=== PATIENT | female | born 1970 | race American Indian/Alaskan Native ===

== ENCOUNTER 2018-10-12 09:39 | Emergency (ER) | payer OTHER ==
[2018-10-12] MEDS ORDERED: NA CHLORIDE 0.9% 1,000 ML ONE (10:32)
[2018-10-12 10:38] LABS: Absolute Lymphocytes (CBC) 1.1 K/uL (0.7-4.9); Absolute Monocytes 0.4 K/uL (0.1-1.3); Absolute Neutrophil 4.5 K/uL (1.8-8.0); Basophils % 0.6 % (0-1.3); Eosinophils % 1.1 % (0-4.4); Hematocrit 37.9 % (36.0-45.0); Lymphocytes % 17.7 % (15.3-44.8); MPV 8.8 fL (7.6-11.3); Monocytes % 7.1 % (3.3-12.3); RBC Red Blood Cell Count 4.14 M/uL (3.86-4.86)
--- NOTE | 2018-10-12 10:55 | RAD REPORT ---
EXAM DESCRIPTION: CT - Head Brain Wo Cont - 10/12/2018 10:40 am CLINICAL HISTORY: Mental status change;Numbness Headache, drowsiness COMPARISON: No comparisons TECHNIQUE: All CT scans are performed using dose optimization technique as appropriate and may inclu de automated exposure control or mA/KV adjustment according to patient size. FINDINGS: No intracranial hemorrhage, hydrocephalus or extra-axial fluid collection.No areas of brai n edema or evidence of midline shift. The paranasal sinuses and mastoids are clear. The calvarium is intact. IMPRESSION: No acute intracranial abnormality.
--- NOTE | 2018-10-12 11:03 | RAD REPORT ---
EXAM DESCRIPTION: Edna Single View10/12/2018 10:56 am CLINICAL HISTORY: Palpitations COMPARISON: none FINDINGS: The lungs appear clear of acute infiltrate. The heart is normal size IMPRESSION: No acute abnormalities displayed
[2018-10-12 11:28] LABS: BUN Blood Urea Nitrogen 12 mg/dL (7-18); Bicarbonate 23 mmol/L (21-32); Creatine Phosphokinase 246 U/L (26-192); Glucose Level 196 mg/dL (74-106); Magnesium 2.1 mg/dL (1.8-2.4); Potassium 3.4 mmol/L (3.5-5.1); Sodium Level 138 mmol/L (136-145); Thyroid Stimulating Hormone 0.716 uIU/mL (0.360-3.740); Troponin (Emerg Dept Use Only) < 0.02 ng/mL (0.0-0.045)
[2018-10-12 11:30] LABS: Calcium Oxalate Crystals- Ur FEW (NONE SEEN); Urine Bacteria <20 /HPF (<20); Urine Culture Reflex Order REFLEXED; Urine Mucus 1+ /HPF (NONE SEEN); Urine RBC TNTC /HPF (NONE SEEN)
[2018-10-12 13:11] LABS: Urine Blood 3+ (NEG); Urine Glucose NEGATIVE (NEG); Urine Protein 1+ (NEG); Urine Specific Gravity 1.025 (1.005-1.030); Urine pH 5.5 (5.0-7.0)
[2018-10-12] MEDS ORDERED: LORazepam 2 MG/ML VIAL ONE (13:15)
--- NOTE | 2018-10-12 16:06 | ER ---
Nurse's Notes [facility] [place] Name: Hallie Anderson Age: 48 yrs Sex: Female : 1970 Arrival Date: 10/12/2018 Time: 09:39 Bed Treatment Private MD: Nina Barillas C Diagnosis: Sleep deprivation;Dehydration Presentation: 10/12 09:58 Presenting complaint: Patient states: Past couple days haven't been able to sleep, feel jl7 tingly all over. Denies pain, N/V/D. Transition of care: patient was not received from another setting of care. Onset of symptoms was October 10, 2018. Risk Assessment: Do you want to hurt yourself or someone else? Patient reports no desire to harm self or others. Initial Sepsis Screen: Does the patient meet any 2 criteria? HR > 90 bpm. No. Patient's initial sepsis screen is negative. Does the patient have a suspected source of infection? No. Patient's initial sepsis screen is negative. Care prior to arrival: None. 09:58 Method Of Arrival: Ambulatory [facility] 09:58 Acuity: SRIDHAR 3 jl7 Triage Assessment: 10:01 General: Appears in no apparent distress. uncomfortable, Behavior is cooperative, jl7 drowsy. Pain: Denies pain. EENT: No deficits noted. Neuro: Level of Consciousness is awake, alert, obeys commands, Oriented to person, place, time, situation, Moves all extremities. Full function Gait is steady, Speech is normal. Cardiovascular: Patient's skin is warm and dry. Respiratory: Airway is patent Respiratory effort is even, unlabored, Respiratory pattern is regular, symmetrical. GI: No signs and/or symptoms were reported involving the gastrointestinal system. Patient currently denies diarrhea, nausea, vomiting. : No signs and/or symptoms were reported regarding the genitourinary system. Derm: Skin is pink, warm \\T\\ dry. Musculoskeletal: No signs and/or symptoms reported regarding the musculoskeletal system. 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 - Social history:: Smoking status: Patient/guardian denies using tobacco. - Ebola Screening: : No symptoms or risks identified at this time. - Family history:: not pertinent. - Hospitalizations: : No recent hospitalization is reported. Screenin:49 Abuse screen: Denies threats or abuse. Denies injuries from another. Nutritional jl7 screening: No deficits noted. Tuberculosis screening: No symptoms or risk factors identified. Fall Risk IV access (20 points). Total Adler Fall Scale indicates No Risk (0-24 pts). Assessment: 10:03 General: See triage assessment. jl7 11:14 Reassessment: Patient and/or family updated on plan of care and expected duration. Pain pc1 level reassessed. pt is laying in supine position with eyes closed, breathing without signs of distress. 12:03 Reassessment: Pt laying in bed with eyes closed, respirations even and unlabored, no jl7 signs of distress noted at this time. Pt's friends went to the cafeteria and will return. 12:10 Reassessment: Pt reports decreased tingling on body after medication. jl7 13:33 Reassessment: Pt states "The medication helped a little but my mind is racing.". jl7 14:30 Reassessment: Patient appears in no apparent distress at this time. Patient and/or jl7 family updated on plan of care and expected duration. Pain level reassessed. Patient states feeling better. Patient states symptoms have improved. 16:01 Reassessment: Pt laying in bed with eyes closed, respirations even and unlabored, no jl7 signs of distress noted at this time. Pt's friend at bedside reports she is asleep. 16:58 Reassessment: Pt placed in treatment room awaiting to pick her up. jl7 Vital Signs: 10:01 BP 141 / 86; Pulse 106; Resp 19 S; Temp 99.2(O); Pulse Ox 100% on R/A; Weight 68.04 kg jl7 (R); Height 5 ft. 5 in. (165.10 cm) (R); Pain 0/10; 11:16 BP 132 / 78; Pulse 87; Resp 17; Pulse Ox 100% on R/A; pc1 12:03 BP 121 / 83; Pulse 78; Resp 16 S; Pulse Ox 100% on R/A; jl7 13:33 BP 116 / 87; Pulse 68; Resp 16 S; Pulse Ox 100% on R/A; jl7 14:47 BP 127 / 69; Pulse 81; Resp 14 S; Pulse Ox 100% on R/A; jl7 16:01 BP 111 / 73; Pulse 64; Resp 14 S; Pulse Ox 100% on R/A; jl7 10:01 Body Mass Index 24.96 (68.04 kg, 165.10 cm) jl7 ED Course: 09:39 Patient arrived in ED. mr 09:40 Nina Barillas MD is Private Physician. mr 09:47 Delvis Hamilton MD is Attending Physician. rn 09:48 Christina Jhaveri RN is Primary Nurse. jl7 09:59 Triage completed. jl7 10:01 Arm band placed on right wrist. jl7 10:05 Patient has correct armband on for positive identification. Placed in gown. Bed in low jl7 position. Call light in reach. Side rails up X 1. conveyor monitor on. Pulse ox on. NIBP on. Warm blanket given. 10:09 Inserted saline lock: 20 gauge in right antecubital area, using aseptic technique. pc1 10:41 CT Head Brain wo Cont In Process Unspecified. EDMS 10:50 Initial lab(s) drawn, by ri, sent to lab. Urine collected: clean catch specimen, jl7 cloudy, jessica colored. 10:56 XRAY Chest (1 view) In Process Unspecified. EDMS 12:11 Assisted to bathroom. jl7 16:05 Nina Barillas MD is Referral Physician. rn 16:58 No provider procedures requiring assistance completed. IV discontinued, intact, jl7 bleeding controlled, No redness/swelling at site. Pressure dressing applied. Administered Medications: 10:37 Drug: NS 0.9% 1000 ml Route: IV; Rate: 1000 ml; Site: right antecubital; jl7 12:05 Follow up: Response: No adverse reaction; IV Status: Completed infusion; IV Intake: jl7 1000ml 11:36 Drug: Valium 2 mg Route: PO; jl7 12:15 Follow up: Response: No adverse reaction; Marked relief of symptoms jl7 13:11 Drug: Ativan 0.5 mg Route: IVP; Site: right antecubital; jl7 13:30 Follow up: Response: No adverse reaction jl7 14:15 Drug: Ativan 0.5 mg Route: IVP; Site: right antecubital; jl7 14:47 Follow up: Response: No adverse reaction; Marked relief of symptoms jl7 16:27 Drug: Valium 5 mg Route: PO; pc1 16:56 Follow up: Response: Medication administered at discharge. jl7 Intake: 12:05 IV: 1000ml; Total: 1000ml. jl7 Outcome: 16:05 Discharge ordered by . rn 16:57 Discharged to home ambulatory, with friend. jl7 16:57 Condition: stable 16:57 Discharge instructions given to patient, friend, Instructed on discharge instructions, follow up and referral plans. medication usage, Demonstrated understanding of instructions, follow-up care, medications, Prescriptions given X 1. 19:09 Patient left the ED. iw Signatures: Dispatcher [employer] Ashleigh Echevarria Irene, RN Delvis Moreno MD MD rn Leal, Jahala, RN RN jl7 Cantu, Patrick [facility]
--- NOTE | 2018-10-12 16:06 | EDPHYS ---
Physician Documentation [facility] [place] Name: aHllie Anderson Age: 48 yrs Sex: Female : 1970 Arrival Date: 10/12/2018 Time: 09:39 Bed Treatment Private MD: Nina Barillas C ED Physician Delvis Hamilton HPI: 10/12 10:01 This 48 yrs old Other Female presents to ER via Ambulatory with complaints of Body rn Numbness. 10:01 Reports entire body numb, began yesterday, reports feeling "overwhelmed" lately, barely rn getting any sleep over last few days, no fever, + chills and fatigue. No chest or abd pain, no headache/vision changes. NO new medication or stimulant. Only history is UC but not having any vomiting/diarrhea/abd pain right now. . Onset: The symptoms/episode began/occurred yesterday. Severity of symptoms: At their worst the symptoms were moderate in the emergency department the symptoms are unchanged. The patient has not experienced similar symptoms in the past. The patient has not recently seen a physician. 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 - Social history:: Smoking status: Patient/guardian denies using tobacco. - Ebola Screening: : No symptoms or risks identified at this time. - Family history:: not pertinent. - Hospitalizations: : No recent hospitalization is reported. ROS: 10:01 Constitutional: Negative for fever, + chills Eyes: Negative for injury, pain, redness, rn and discharge, ENT: Negative for injury, pain, and discharge, Neck: Negative for injury, pain, and swelling, Cardiovascular: + palpitations, negative for chest pain Respiratory: Negative for shortness of breath, cough, wheezing, and pleuritic chest pain, Abdomen/GI: Negative for abdominal pain, nausea, vomiting, diarrhea, and constipation, MS/Extremity: Negative for injury and deformity, Skin: Negative for injury, rash, and discoloration, Neuro: Negative for headache, and seizure. Exam: 10:01 Constitutional: This is a well developed, well nourished patient who is awake, rn somnolent, awakens to voice. Appears drowsy. Head/Face: Normocephalic, atraumatic. Eyes: Pupils equal round and reactive to light, extra-ocular motions intact. Lids and lashes normal. Conjunctiva and sclera are non-icteric and not injected. Cornea within normal limits. Periorbital areas with no swelling, redness, or edema. ENT: dry MM Cardiovascular: tachycardic, regular, no murmur Respiratory: Lungs have equal breath sounds bilaterally, clear to auscultation, + mild tachypnea. Abdomen/GI: soft, non-tender MS/ Extremity: Pulses equal, no cyanosis. Neurovascular intact. Full, normal range of motion. Equal circumference. Neuro: Awake but somnolent, GCS 15, oriented to person, place, time, and situation. Cranial nerves II-XII grossly intact. Motor strength 5/5 in all extremities. Sensory grossly intact. Cerebellar exam normal. 11:36 ECG was reviewed by the Attending Physician. rn Vital Signs: 10:01 BP 141 / 86; Pulse 106; Resp 19 S; Temp 99.2(O); Pulse Ox 100% on R/A; Weight 68.04 kg jl7 (R); Height 5 ft. 5 in. (165.10 cm) (R); Pain 0/10; 11:16 BP 132 / 78; Pulse 87; Resp 17; Pulse Ox 100% on R/A; pc1 12:03 BP 121 / 83; Pulse 78; Resp 16 S; Pulse Ox 100% on R/A; jl7 13:33 BP 116 / 87; Pulse 68; Resp 16 S; Pulse Ox 100% on R/A; jl7 14:47 BP 127 / 69; Pulse 81; Resp 14 S; Pulse Ox 100% on R/A; jl7 16:01 BP 111 / 73; Pulse 64; Resp 14 S; Pulse Ox 100% on R/A; jl7 10:01 Body Mass Index 24.96 (68.04 kg, 165.10 cm) jl7 MDM: 09:47 Patient medically screened. 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 Updated . . 14:20 Differential Diagnosis flu, UTI, dehydration, sleep deprivation, anxiety. Counseling: I rn had a detailed discussion with the patient and/or guardian regarding: the need for outpatient follow up, to return to the emergency department if symptoms worsen or persist or if there are any questions or concerns that arise at home. Response to treatment: the patient's symptoms have mildly improved after treatment. 16:04 Data reviewed: vital signs, nurses notes, lab test result(s), EKG, radiologic studies, rn CT scan, and as a result, I will discharge patient. ED course: Patient improved, sleeping comfortably, spoke with jeanine Stephens to send home with close f/u, negative w/u at this time. . 10/12 09:56 Order name: Troponin (emerg Dept Use Only); Complete Time: 11:31 rn 10/12 09:56 Order name: Basic Metabolic Panel; Complete Time: 11:31 rn 10/12 09:56 Order name: CBC with Diff; Complete Time: 10:46 rn 10/12 09:56 Order name: CPK; Complete Time: 11:31 rn 10/12 09:56 Order name: Magnesium; Complete Time: 11:31 rn 10/12 09:56 Order name: Blood Culture Adult (2) rn 10/12 09:56 Order name: Flu; Complete Time: 10:55 rn 10/12 09:56 Order name: Procalcitonin; Complete Time: 11:31 rn 10/12 09:56 Order name: TSH; Complete Time: 11:31 rn 10/12 09:56 Order name: T4 Free; Complete Time: 11:31 rn 10/12 09:57 Order name: Urine Microscopic Only; Complete Time: 11:31 rn 10/12 10:55 Order name: Urine Dipstick--Ancillary (enter results); Complete Time: 14:05 bd 10/12 10:55 Order name: Urine --Ancillary (enter results); Complete Time: 14:05 bd 10/12 11:32 Order name: Urine Culture EDGA 10/12 09:56 Order name: CT Head Brain wo Cont; Complete Time: 10:55 rn 10/12 09:56 Order name: EKG; Complete Time: 09:57 rn 10/12 09:56 Order name: Cardiac monitoring; Complete Time: 10:38 rn 10/12 09:56 Order name: EKG - Nurse/Tech; Complete Time: 10:38 rn 10/12 09:56 Order name: IV Saline Lock; Complete Time: 10:38 rn 10/12 09:56 Order name: Labs collected and sent; Complete Time: 10:38 rn 10/12 09:56 Order name: NPO; Complete Time: 10:38 rn 10/12 09:56 Order name: O2 Per Protocol; Complete Time: 10:38 rn 10/12 09:56 Order name: O2 Sat Monitoring; Complete Time: 10:38 rn 10/12 09:56 Order name: Urine Dipstick-Ancillary (obtain specimen); Complete Time: 10:37 rn 10/12 09:56 Order name: XRAY Chest (1 view); Complete Time: 11:17 rn EC:36 Rate is 104 beats/min. Rhythm is regular. QRS [place] is Normal. AR interval is normal. rn QRS interval is normal. QT interval is normal. No Q waves. T waves are Normal. No ST changes noted. Clinical impression: Sinus tachycardia. Interpreted by me. Administered Medications: 10:37 Drug: NS 0.9% 1000 ml Route: IV; Rate: 1000 ml; Site: right antecubital; jl7 12:05 Follow up: Response: No adverse reaction; IV Status: Completed infusion; IV Intake: jl7 1000ml 11:36 Drug: Valium 2 mg Route: PO; jl7 12:15 Follow up: Response: No adverse reaction; Marked relief of symptoms jl7 13:11 Drug: Ativan 0.5 mg Route: IVP; Site: right antecubital; jl7 13:30 Follow up: Response: No adverse reaction jl7 14:15 Drug: Ativan 0.5 mg Route: IVP; Site: right antecubital; jl7 14:47 Follow up: Response: No adverse reaction; Marked relief of symptoms jl7 16:27 Drug: Valium 5 mg Route: PO; pc1 16:56 Follow up: Response: Medication administered at discharge. jl7 Disposition: 10/12/18 16:05 Discharged to Home. Impression: Sleep deprivation, Dehydration. - Condition is Stable. - Discharge Instructions: Dehydration, Adult, Paresthesia. - Prescriptions for Ativan 1 mg Oral Tablet - take 1 tablet by ORAL route 2 times per day As needed; 20 tablet. - Medication Reconciliation Form, Thank You Letter, Antibiotic Education, Prescription Opioid Use form. - Follow up: Nina Barillas MD; When: 1 - 2 days; Reason: Recheck today's complaints, Re-evaluation by your physician. - Problem is new. - Symptoms have improved. Signatures: Dispatcher [employer] Thi Longo, RN RN iw Delvis Hamilton MD MD rn Leal, Jahala, SHANE RN jl7 Song Alcantar [facility] Corrections: (The following items were deleted from the chart) 19:09 16:05 10/12/2018 16:05 Discharged to Home. Impression: Sleep deprivation; Dehydration. iw Condition is Stable. Forms are Medication Reconciliation Form, Thank You Letter, Antibiotic Education, Prescription Opioid Use. Follow up: Nina Barillas; When: 1 - 2 days; Reason: Recheck today's complaints, Re-evaluation by your physician. Problem is new. Symptoms have improved. rn
[2018-10-12] MEDS ORDERED: DIAZEPAM 5 MG TABLET ONE (16:36)
[2018-10-12 19:17] VITALS: TEMP 99.2; O2SAT 100
[2018-10-12 19:24] VITALS: BP 111/73
== END 2018-10-12 19:09 | disposition home or self-care (01) ==
LOC: ER 09:39
DX: Z72.820 Sleep deprivation (principal); E86.0 Dehydration
CPT/HCPCS: 36415; 70450; 71045; 80048; 81003; 81015; 81025; 82550; 83735; 84145; 84439; 84443; 84484; 85025; 87040; 87086; 87088; 87804; 93005; 96361; 96374; 99284; J7030

== ENCOUNTER 2020-06-19 06:08 | Emergency (ER) | payer OTHER ==
--- OUTSIDE RECORDS SUMMARY | 2020-06-19 06:11 | XMS REPORT | Clinical Summary ---
:1970 Author Organization [facility] Address [address] [place] [address] Care Team Providers Name Role Phone Glenis Barillas MD Primary Care Provider Allergies Active Allergy Reactions Severity Noted Date Comments Corticosteroids Other (See Comments) Low 02/08/2019 [place] ucinations (Glucocorticoids) Budesonide Other (See Comments) Low 07/28/2016 DELUSIO NAL Medications Medication Sig Dispensed Refills Start Date End Date Status mesalamine (LIALDA) 1.2 Take 4,800 mg by 0 Active gram EC tablet mouth daily with breakfast. Active Problems Not on file Encounters Date Type Specialty Care Team Description 01/19/2020 Anesthesia Event Lavonne Maria MD Elijah, Elizabet Velez, AUDIO VISUAL ARTS DIRECTOR 01/19/2020 Surgery Fred Pathak MD COLONOSC OPY,BIOPSY 01/19/2020 Hospital Encounter Fred Pathak MD 01/19/2020 Travel after 06/19/2019 Family History Medical History Relation Name Comments Prostate cancer Father Parkinsonism Mother Relation Name Status Comments Father Alive Mother Alive Social History Tobacco Use Types Packs/Day Years Used Date Never Smoker Smokeless Tobacco: Never Used Alcohol Use Drinks/Week oz/Week Comments No Sex Assigned at Date Recorded Not on file Last Filed Vital Signs Vital Sign Reading Time Taken Comments Blood Pressure 122/69 01/19/2020 1:40 PM CDT Pulse 59 01/19/2020 1:40 PM CDT Temperature 36.6 C (97.9 F) 01/19/2020 1:12 PM CDT Respiratory Rate 16 01/19/2020 1:40 PM CDT Oxygen Saturation 100% 01/19/2020 1:40 PM CDT Inhaled Oxygen Concentration - - Weight 70.4 kg (155 lb 4.8 oz) 01/19/2020 11:07 AM CDT Height 165.1 cm (5' 5") 01/19/2020 11:07 AM CDT Body Mass Index 25.84 01/19/2020 11:07 AM CDT Plan of Treatment Health Maintenance Due Date Last Done Comments CERVICAL CANCER SCREENING PAP ONLY (Age 21-65) 1993 LIPID PANEL 2017 INFLUENZA VACCINE (#1) 2020 Procedures Procedure Name Priority Date/Time Associated Diagnosis Comme nts REPORT OF 01/19/2020 1:16 PROCEDURE - PM CDT ENDOSCOPY URL REPORT OF 01/19/2020 12:22 PROCEDURE - PM CDT ENDOSCOPY URL TISSUE EXAM AP Routine 01/19/2020 12:15 Results for this PM CDT procedure are i n the results section. UPPER 01/19/2020 11:50 Inflammatory bowel ENDOSCOPY,BIOPSY AM CDT disease COLONOSCOPY,BIOPSY 01/19/2020 11:50 Inflammatory bowel AM CDT disease POCT , Routine 01/19/2020 10:56 Results for this URINE AM CDT procedure are i n the results section. after 06/19/2019 Results REPORT OF PROCEDURE - ENDOSCOPY URL (01/19/2020 1:16 PM CDT) Narrative Performed At This result has an attachment that is no t available. REPORT OF PROCEDURE - ENDOSCOPY URL (01/19/2020 12:22 PM CDT) Narrative Performed At This result has an attachment that is no t available. Tissue Exam (01/19/2020 12:15 PM CDT) Pathologist Sig nature Case Report Surgical Pathology Report Case: [id number] I [facility] Authorizing Provider: Fred Rios MD Collected: 01/19/2020 12:15 PM [facility] Ordering Location: [facility] ENDOSCOPY Received: 01/19/2020 02:21 PM [facility] Pathologist: Dipika Bar MD Specimens: A) - Duodenum, BX R/O Celiac and iron deficiency B) - Cecu m, BX C) - Larg e Intestine, Colon - Transverse, BX R/O Colitis D) - Larg e Intestine, Colon - Left/Descending, BX R/O Colitis E) - Larg e Intestine, Colon - Rectosigmoid, BX R/O Colitis DIAGNOSIS A. DUODENUM, BIOPSY: [facility] Electr onically signed - NO SIGNIFICANT PATHOLOGICAL ABNORMALITY [facility] by Dipika Bar MD on [facility] 01/24/2020 at 5:30 PM B. CECUM, BIOPSY: - MINIMAL ARCHITECTURE DISTORTION - MELANOSIS COLI C. TRANSVERSE COLON, BIOPSY: - CHRONIC COLITIS WITH SPARSE ACTIVITY - NO GRANULOMA OR DYSPLASIA D. LEFT DESCENDING COLON, BIOPSY: - CHRONIC COLITIS - NO ACTIVITY, GRANULOMA OR DYSPLASIA E. RECTOSIGMOID COLON, BIOPSY: - CHRONIC COLITIS - NO ACTIVITY, GRANULOMA OR DYSPLASIA Signing Pathologist Direct Phone Line: [phone] CPT Code(s) CC/ew [facility] [id number] x5 [facility] CLINICAL HISTORY Preop diagnosis: Inflammatory bowel disease [facility] Procedure: colonoscopy, biopsy, upper endoscopy, biops y [facility] SPECIMEN SOURCE A. Duodenum biopsy, [facility] rule out celiac and [facility] iron deficiency; B. [facility] Cecum, biopsy'; C. Large intestine, colon - transverse, biopsy rule out colitis; D. Large intestine, colon - left/descending, biopsy rule out colitis; E. Large intestine, colon - rectosigmoid biopsy, rule out colitis GROSS DESCRIPTION A. Received in formalin labe led with the patient's name, accession number and "duodenum" are multiple michelle-white soft tissue fragments that measure in aggregate 1.2 x x 0.5 x 0.3 cm. The specimen is entirely submitted as A1. [facility] B. Received in formalin labe led with the patient's name, accession number and "cecum" are three michelle-white soft tissue fragments that measure in aggregate 0.6 x 0.4 x 0.3 cm. The specimen is entirely submitted as B1. [facility] C. Received in formalin labe led with the patient's name, accession number and "transverse colon" are multiple michelle soft tissue fragments that measure in aggregate 0.7 x 0.4 x 0.3 cm. The specimen is entirely submitted as C1. D. Received in formalin labe led with the patient's name, accession number and "descending colon" are four michelle-white soft tissue fragments that measure in aggregate 0.6 x 0.4 x 0.3 cm. The specimen is entirely submitted as D1. E. Received in formalin labe led with the patient's name, accession number and " rectosigmoid colon" are multiple michelle-white soft tissue fragments that measure in aggregate 0.8 x 0.5 x 0.4 cm. The specimen is entirely submitted as E1. MH/pl MICROSCOPIC Performed [facility] Specimen Tissue - Duodenal structure (body struct ure) Tissue specimen (specimen) - Cecum struc ture (body structure) Tissue specimen (specimen) - Transverse colon structure (body structure) Tissue specimen (specimen) - Descending colon structure (body structure) Tissue specimen (specimen) - Rectosigmoi d structure (body structure) Performing Organization Address City/State/Zipcode Phone Number [place] [phone] [place] [address] CENTER POCT , urine (01/19/2020 10:56 AM CDT) Pathologist Sig nature Test Urine, POC Negative Control line present?, POC Yes Background clear?, POC Yes UPT Cassette Lot #, POC [id number] UPT Cassette Expiration Date, 06/10/2021 POC Specimen Urine after 06/19/2019 Insurance Payer Benefit Plan / Subscriber ID Effective Dates Phone Addre ss Type Group [facility] HMO POS [id number] 2018-Present HMO/POS - [facility] C[facility] SELECT CHOICE
--- OUTSIDE RECORDS SUMMARY | 2020-06-19 06:11 | XMS REPORT | Continuity of Care Document ---
:1970 Author Organization [facility] t Address [address] [place] [address] Care Team Providers Name Role Phone Glenis Barillas MD Primary Care Physician ZO Attending Clinician Unavailable Zo THOMASON Attending Clinician Candace THOMASON Attending Clinician Rosie Nava CRNA Attending Clinician ALONDRA Attending Clinician Unavailable ZO Admitting Clinician Unavailable ALONDRA Admitting Clinician Unavailable Payers Payer Name Policy Type Policy Effective Date Expiration Date Sour ce Number [facility] [id number] [facility] - MGD CAREUNITED 00:00:00 - Medica l HMO POS [facility] [id number] 07/2018-PresentHMO /POS Problems This patient has no known problems. Allergies, Adverse Reactions, Alerts Allergy Allergy Status Severity Reaction(s) Onset Inactive Treating Comm ents Source Name Type Date Date Clinician Corticos Drug Active Other (See hallucina C [facility] teroids Intolera Comments) 7-31 tions Stephon s - (Glucoco nce 00:00: Medical rticoids 00 Center ) Budesoni Drug Active Other (See DELUSIONA C [facility] de Intolera Comments) 1-17 [facility] STEROIDS DA Active U 2013- [facility] [place] Family History Family Member Diagnosis Comments Start Date Stop Date Source Natural father Prostate cancer [facility] Natural mother Parkinsonism [facility] Social History Social Habit Start Date Stop Date Quantity Comments Source Sex Assigned At [facility] Tobacco use and 2020-01-19 2020-01-19 Never used [facility] - exposure 00:00:00 00:00:[address] [facility] Alcohol intake 2020-01-19 2020-01-19 Current [facility] - 00:00:00 00:00:00 non-drinker of Medical Ce nter alcohol (finding) Smoking Status Start Date Stop Date Source Never smoker [facility] Medications Ordered Filled Start Stop Current Ordering Indication Dosage Frequency Signature Comments Components Source Medication Medication Date Date Medication? Clinician (SIG) Name Name mesalamine Yes 4800mg Take 4,[address] (LIALDA) 7-10 mg by [facility] - 1.2 gram EC 14:09: mouth Medic al tablet 58 daily with Center breakfast. Vital Signs Vital Name Observation Time Observation Value Comments Source Systolic blood 2020-01-19 13:40:00 122 mm[Hg] [facility] Diastolic blood 2020-01-19 13:40:00 69 mm[Hg] [facility] Heart rate 2020-01-19 13:40:00 59 /min [facility] Respiratory rate 2020-01-19 13:40:00 16 /min [facility] Oxygen saturation in 2020-01-19 13:40:00 100 /min [facility] Arterial blood by Medical Ce nter Pulse oximetry Body temperature 2020-01-19 13:12:00 36.61 Carol [facility] Body height 2020-01-19 11:07:00 165.1 cm [facility] Body weight 2020-01-19 11:07:00 70.444 kg [facility] BMI 2020-01-19 11:07:00 25.84 kg/m2 [facility] Procedures Procedure Date / Time Performed Performing Clinician [facility] e REPORT OF PROCEDURE - 2020-01-19 13:16:28 Fred Pathka [facility] ENDOSCOPY [facility] REPORT OF PROCEDURE - 2020-01-19 12:22:01 Fred Pathak [facility] - ENDOSCOPY [facility] TISSUE EXAM 2020-01-19 12:15:00 Fred Pathak [facility] COLONOSCOPY,BIOPSY 2020-01-19 11:50:00 Fred Pathak [facility] UPPER ENDOSCOPY,BIOPSY 2020-01-19 11:50:00 [facility] POCT , URINE 2020-01-19 10:56:00 Zo Fred [facility] Plan of Care Planned Activity Planned Date Details Comments Source Future Scheduled 2020-03-12 INFLUENZA VACCINE [facility] - Test 00:00:00 (#1) [code = [facility] INFLUENZA VACCINE (#1)] Future Scheduled [address] [facility] - Test 00:00:00 (procedure) [code = [facility] 59558434] Future Scheduled [address] [facility] - Test 00:00:00 malignant neoplasm Medical C enter of cervix (procedure) [code = 887351635] Results Test Description Test Time Test Comments Results Result Comments Source Tissue Exam 2020-01-24 17:30:00 Test Item Value Reference Range Interpretation Comme nts Case Report (test code = 104) Surgical Pathology Report Case: [id number] Authorizing Provider: Fred Pathak MD Collected: 01/19/2020 12:15 PM Ordering Location: [facility] ENDOSCOPY Received: 01/19/2020 02:21 PM SERVICES Pathologist: Dipika Bar MD Specimens: A) - Duodenum, BX R/O Celiac and iron deficiency B) - Cecum, BX C) - Large Intestine, Colon - Transverse, BX R/O Colitis D) - Large Intestine, Colon - Left/Descending, BX R/O Colitis E) - Large Intestine, Colon - Rectosigmoid, BX R/O Colitis DIAGNOSIS (test code = 3220) b3jdtATrYRIxn5bdGUCanCLyDfVkRsYhZaAcHk pcdW NvJBbfywGxAWmpi3LlJ5NiJxNzDUpptnMjARWhJsun iutiOYPoCAK0coCbJCLgUQliZFImLIsoVr3odUYesN rfTzDuUZBse3tqdmYTkeqgaTf0m2yxMVGpUnY0iUFf VOltK9vtsdXbwBIzDGOhSHz5rR75IYRstN5nxINkQI awvdEsRxR2FEvkDMJuAyL3WYOhqPYdJLMdN9wkYYKg EGpdQVFmAUomeUZoUCO5tTwux6C8gOEmbZGwxSwgPv KlAzPoRUTQh8JwZXm7iSooY4WvZGIjTgX0uISlZTMc ETcaZARjYWVbqvW8qR77GExnazE8uVDgf4Iqu98wp7 73wX9ijHWaGLL7UJRxECFrnDEqQJWvOPA4SEWmsMKm A7v6FyPlnWKqR6Q7OuTyjKEzZ9K0XlNzhHUiA3A9Gc DfdWAdUHJlfKErCz2qeXYopPIwos4irb55NZC4i2Aw dLwtQKA5FNR4VuWeQj4iqQHaFXNgTA1zEiPzsAYfZY Gspd42gIfzXCshapMgpO1oEiUlLRRleTRbAFCxHQ0x kGQcASLnlF9gzipoGLVaEfFwkrxiXUQjhGjvmyRsIh 7fuUyxILV4CXdlG8bivD4nFuA4CJhtH1cbgC3mEXt7 QIlarQY9ILIikQ9zMJ5ydnhsx0dlUzPnRM5wvyopc5 lqBtQuSJ6pypd7s8exAvQaQR8cbcttd0qiSoXlVKme LGFftjbgNAJsc8ZfqayzWFRxu6LsO1OwnGhpX18avF soQ53kJTItaXjorH3oaWfiwJ5cPpLxWkZrDRalsPsu bWDnauxqZYgzynKuVSmdsaauFSMoPKhuB6vbHxVkKS QfxOejPQckd2UoBMFuNXRrBySvFQ9uPJDOFCOPUU0n EWHWV5FMFZdhlAKqVZAaEUWYGvZJZJxLCAHSD3GCDD CQGUALL7qQQ7pXBMtyBPZED6CESCzSVEcdIFXyemyz WPIwEr0qI1WPPZ3hYQXII2BFHRziuEPyVJYmQMPRSH 0NOVRJQXWFW3kRPHUJNJSRVPROUNCZO0MGYI3VYGFp ixRiUW0tGUEIBE2UL7bUNBVOCOiwyRMvASLsixCRCa FHVxZPU0YOZvWKEWDAJQ0JUXJOIF9TZ1k8XTAllgvw KHMmCNLoVVuuOSLePGMnTkKrxKqdwH9vGcKtQcAoHD tzWK6zXVSsT0wziALaJOFgAZApK8rjKeCcgI7tuTjv BOdoiiOrKYDsDILLQFQATgrFWALJAQtHTJZpU0nVJK JTLMISD1LmPDMEVNCYKObheIRkSWHuBELHKaZGUgIG YGrXIZAnH3OkZOtBVRjDM7hBKMzdOLGqmLUtAGLbNS nOMfNwVSURU5YSVAcTBzHKX3oJVabhCmfLNPOFWwfy JJQcYAInICKMIn1EARZtP14JLPFCW6vtIRBdWSTrYU 8MXOLLWIvPSSFNYFHVBxSCEBpPDGOdJ9PvKPzTDOnM F3kIGQZbnkcwnZgvzYMyrtdtESrqwmB8PKDrEFkwJQ YxXGZzMjBcbGFuZzEwMzNcaGljaFxmMVxkYmNoXGYx MFntN5jhXyPxPhArOJujXJImOT4fSpRNLB9IBQkHT8 tKWDXAAN6XOYLBRW8HZ7c8BJBmgmEbWT9nN2wVE14H FnIBM3rKBRgLSQZghqZtLJ0sIy5wEPJLAVBEGAocXC kSJO6KKI6PZLIEBzDUXIJKRBAGCCFgEVXydx75QNR7 ItLin9C9MSG3GCRwMUThx7fjUODdeOEvPxJsFtCzUi OnRtylnSPhVURdSkSli4aag130sTEqo0jwNZFoChW9 sXFaWXOqkWFjA588PPQaTIdmd8puc6RcYJAjbGCxn2 V2EKKExhtdaTr0aQszF47vu2P6MlnaT4ufFCYaLLCq O1TyXS3pEUIqNns7EYZ6WSG9XOHjUCNtG3VvAY7zBL SkbQNnEFn3r8zamHzvKFJsPBA8z6cjZUlczhYuED1e ql5gtXk0w6tfowZsYANwKPUsaJJWXDLgX7PegCxpJc 7gsQb9qGhvMwrtINW7Awv9RA9hwa36qhl8gDjlRNAs ufahHuF3ERogQORjmyygECu5ESkjTBAckGG4DAGimA AjF5KgCKZbGI9qnph0FHZ9HMguQMZjXaV7RQTqnJTk ZWXazHxiJDodi733ONN5OtFyZK0dT4Hlh7Y5vH7fpF BkXMJjiZJyHzAdMKKahg9ufYMrGOuwl8PcPLY0wsP1 iDPenBNjRPYjUjA1BChvWU7gzi93JKOvSBV7wu3vqE UxyNdyvlBrgOMkQLgxJ8CyFETcj553XWCcP6DqQFCt v4D0xlEmZkCpJAPpfYD9jkV5XBZaXJ9hkcrru7ycKY chKJlqJNQxfjM8tnP4MPVbqPNlI2GskA4wKNQoMB0h bnque9fwZAG3XQstQYWrODK4QaWnSGPqv6Awqux8Bq Rxv3UmuQAvQOlvV90fy904FIZhsvWnI3yfjSWqsqqw wEXkpfcqOUqxyqL6VUCmIJlqzfbzAJDfVHpxF4quRr OcZDWyqPpnHPapz8YyJRTtXVIuVdIpbAYoTBAqAvy8 GLCjvIIvGJUyXiElK1pjgykgGuDBYCKfr2hwC8nvqC VFhKVeX8ZrMObadbJrKTryCIoeCGZ1PEK8Vl90HdM2 HERbjv87 CPT Code(s) (test code = 3357) h5xgtXZuAIKbvRQyYwBkAIPeNRJat3hbCMGb bGFuZz RwWpHnYzYdKjfvxQDxXLZrAeUqv9lfw093jMKwt7yr SAGkOxO8yPRxBAJkhWApY642d4zif5djxeLmkFM2YY VkCMF1QGkpwvBkjqP7IDufxENqLmC3CComwcDzBOpa euDccoNzKti5TJKvE093ZXG4vJmxn7ztRXH3RWAgNB HjLlQxNs1drVXpE492UKLyODQBDHTtrJn0COGzsvPg abDeuPNJo572M721x3ofLDFmnpBgfGnCdikuz9kmZ8 32MBJfrKPrpuHsZiZhRLZjtQHapHN2ACCaRU1pitix XfHfNE6yphgoHoDaZV5ypdo2KwNmPB1oheasTkFlQD ltRCMytzwnXIBgc1NaomyfST6tF5Ymo3P0wT3mkOUl RVMnmBReHhQkWSNzof4miDRnIMrvr9UnEHD9reV2xB DaoWFsUWYdVD65Vjrvb9LhKikaGEE6NRTsiqMzc5Yz a1xmCbPdmeIjV9qvM3ZlXXKhDBFyPLIiJbLkhiBpn1 Owy9JlcNKunCh4u7ekVDHgNQJjtSifp7vhYVD7OSEs D1P8cIUpr7ymKAhhPNEpuWO4igaiPPnbVJNymgP8cd jdLAftVYCouFV3llwjCMlsOXGdTnO5dloiEUabAEVk BHF5GNymc507BMD8MZtwYwdpWXgnCBAcrcNgayUziS duZGVjXHBsYWluXHBsYWluXGYwXGZzMjRccWxccGxh mV8xNeTvGgBhJSefQR3oFIErO6cdrZBvFBElULWvR7 yjOgKisE8ukJloOFunmoDyWGDYF5G3TEXwrmK0ORSo MLQ4TSrtPDX1 CLINICAL HISTORY (test code = 3356) s0squYCkICMtzOUwAzGmAARvLZOi q9dhAGVurZAcDg QtYqHsQcGxQhddkQYfXHAuOjOvi0yjo618nWCeb3xg PIEkTjG8fMGuRXJocLCyW316KDHhIJozq7vsd0KqTI HvoVRpu5P5RCNXsapmpRl8lZdiF43jt9N1OzhiR3gl VJXjAPduTPZgXHztzVZdKSR1ZXTqIBR0FFxlgoXbof Q4KZzmeOWkExK2LTx8m5ddcYaxMXRyZAA9p6jcAAfb yaGcUR4vbg2jnBt0j0ryeqGqABOrDWCtiMPCSSKmF5 DnlTgdBl4mnBe1wYnmMxzpSOH6Oct3QM1fmb30evb4 eYwrZSSmyugiChD2WPoiCKGqbcndSWc9TBsbKJAdaZ cyMFxtYXJncjcyMFxtYXJndDcyMFxtYXJnYjcyMFxo MZFwWQZ3YZgvn407OFY8CShxr0rza1nmiGMqFnv8IT SaNnHxGabqXZjmo5Cjc7btAREutb7kTRU0wDZtsYhv z1P0hQEsQKNfqMXglwEyDUSmWfJ3POqtOJ0sfs39YZ SiVQJ5xq1avTVpdSrfodCwkKSiOFzqY1YvINLhh215 XVRrQ1DkPPBvx0P6zlFqNjGqBXWoxUY8whF1AZDjFG s7iTQkbnZ6coKtrDGjG5hncH80YmWopDUdH5ZenN57 HuByrZZkS9FdsX06FpYbyYYvV9MsdZ15TdHrrFPhJQ CwtARgYu0tpAVaiLXpz3ChcOXvBKmvD48tg174OHXe wwJsW3zkuQVvotcnjLAaqtlqCSnuviHnGDJqRJLzBG lbFSEsFZVaRvPgtAgqeZ7gUyUmGpNaTXNKxqJyzHVi mBQkoi4lbJS8QLcvWqjotW1yfA3ofTXfi6laiFPfkQ FvMIOlSMWhkeEEsy9cIAA9sfF9HPXrgV6tc9Fej8I8 XCSayE6yp7zzJUZqtHRuANSvWW9kX46euFjqRapljF H5HOntCHO7 SPECIMEN SOURCE (test code = 3377) b4pnwSNzOPYaqWEtDeRuPRSxWDOqf5mh ZGVmbGFuZz YuTeSgEdTnFlyfbTUsDWFzCmNqi5gkf568nYItf8kg FCCyXbJ4tKLtELPrnEGaB663ZYRrODotz6eel9VzYR KfvLUwv0V0DEPZtkugdWg6xEfvO93vq9O5FrkjL1xh ZXGyYLjnWDEiYUjmgNYcCSU6CTEqJJI9GNmgxuYntf R1TAbzpFYyBxV7HGq8h1dofMwmOATsRMO4h3cfORpm dhPbRI9sgn1icQw6b2jfwpSpCBLdJGWfhITAHPAsM4 NmdYwxLb6plMf7oPvrGzmkRYZ4Mlr5MA6hoi46ljt2 sOsmBFQoxykpYjJ4UXagNHTtbirsNNv7NDqyYRZcvW cyMFxtYXJncjcyMFxtYXJndDcyMFxtYXJnYjcyMFxo PBMmBZJ2VTwvu427GIP2VQofp5elx4swoFJqEkn0RB OqEbHfKnoxEEizj1Cnt2dsJXOlht2oETZ4mPUgrFum b7N7vPFvGBBuaAIdcvZqUWLtPyZ9REscZD5dlk87WD QrTWR2kw3wuMYwaHnjsvRqeLZdXHwaK9XyMHPvi409 TRZzE4EcAHTsj2W7ueSvJlLgCBUdxHP8rcZ6SKGjFG o3jOMpihM6xlEksYAlX2sdcV45HyUycQDuG0DolR79 SiFpkNVpX3DqyN30PgVyiQDnG4OxqI30YrOkySVbLL DrzKTqGr0xuVZgfDWnt9ZqqOBtGMciN34ci135IZIf jkPfQ6hzuMUyzcswuRHledpkCIivgkLvPZNcMLMwQA daNKAaNZUmJnXipAyerJ5wFyKnRuLjBPGCTlYRuY9f WF11fRWejV7gy5krKUE2uHHdc5S8LSEiaOaxOeVepi JpzWChcpTxTWMnJ5hkbpA2NaYLQtRUTEB8jWyqJdmd qQO4TwnsKUNsMRximfjkNRgnbEWbnPxyTWepG65ww1 9kXGBdqZtmgH9gOkGhNbIpWGD3buXef5FwusGmDVKf XYlmJIBeZWJwXfLaJOPuaP5ni6xmpvBzJHVmkUTtA7 3oxSVcgiryKI8gRSAyB2ZyoC24QRC7qG0cFRRml1tz bzGqBEznSqWcFAWhY9FvJOpeMzjdOdqquHB5WKwyyQ TbnzlyNBdyweYqKOU9gOTra1N9NIGwuIa9cAL1PWGl KBrnzslyJVembTTcmWwfCVudF06yi00hFAMhUIZ7m5 AzU52wwFEuDoffsLJ3BFQveAlwUM43zRNle4mviQmm XHBsYWluXGYwXGZzMjBccGFyfQ== GROSS DESCRIPTION (test code = 3366) n4tyfRUlCTRlaGKnXoZjUGM vEYLsz0ddSIKdmDZkKk BuTaWrMwPsDyfccSOlMXZaVhKmi1nvt620lLBqk2yz SQJkZkL9tNNzQGWjhWAoT293GDAdEQkyn5jsc4KvBI VjpACnn6C2TKPLrzoneAm6nObwO97pz4E0KfkuS2vk FPOuAIysFXAtMTeabGHrUOV5FUCtIPT7KJahwwQovf E8DMdvwOFdAkH5CIz8g4zcaZxgDOYsJAR0c9fnGGkc gfGrJS5vrl4slRe6e1awwdFbKVIhEEJiiNHZVHJqT7 OzgShtCz4iqRj2vCjwDhayWTG7Ttf5AE2cqo09amc1 xFihANPvprxcSnA6ZNsvTHZxtazfCOr2XOslAMCxtW cyMFxtYXJncjcyMFxtYXJndDcyMFxtYXJnYjcyMFxo [file] ZjFcZnMyMCBsYWJlbGVkIHdpdGggdGhlIHBhdGllbn SvofQiDI3eXGZnI7Lru6Yqb17zbzYiReMeBAIgOWYc BRVaINxsTUWhNCGuUuKoSPAhP2Ngz1oysQ3mHLZly0 ihudXqOFMgXA51mVTsoBgsWODxtd10iYb4AWSoi4H6 DGGau0C3YPMeuqDcsCFcrZUhrAxflMAqCIPlnVXfLK ntKZBgZ1DyE2S8BRGnBnjftGFgXdKrrYAuNaVtG82f FUSeKPYhwDXuwT2yjdVoriYwwsGgshBmzREbyFOsgI B8CYZtHWXlGOWzSKMVRV0inKmyHHH0 MICROSCOPIC DESCRIPTION (test code = t7aowPJtMKKomIMpOuYfUEB xGMZnl0ukRFZzcHQxWy 3371) MvLsZbKcRrIxpzvMTfANIbAxLmp4okd956hBBfq8vv XQMeYzU0dIJhMNRruUEuS577d9xyt0ztvqNwiXQ2PX IzQKG9BGnbogXkvmW0RIuybDKgDbL9LRonnfFtZXyo inLeuzFsNuz3LRHgS952SJR4oZolh7pgXBJ4MANwPZ UtLmSnGq7mcHXfF396EJUrKHLLBNYwbIg7LQAvdbAi aqXyzAUAz046G846e6leZVNdyfRzsAjPezzew6knW7 83RCQoxDGahrLsWmKfUWVvdQQduZT2EHInHM6tpbfh RdUpBN5mqzqzBdQpRU8erdl4PjOkUP2antkxItLxVY lnLIPzfxunBWVjm3OwahvlRE9iL1Sdw9E0rV2dwNPq EVQitPKvLzBrXGKnga9feFVeRNjqs7AoZLL7rdC7zG NjuKVbJCXsKN07Lahse8HjScucRBE3GJRzbcDpo9Li l1rqDoYwtiVzC4trE2UrJQEzNJMtKRRzNfXcuzDsf3 Yol0YrpABclOh2h1mjRUNgUECmcUumr8oqEAP9JCRm U1G4wOXul8ptZLynPUImuSS6hmpjPPekVNCuufP3li rjEOcvYNWbtHP6uvrkSYufEPSfGoJ9xfitRBywAGOm RDC2SKuic011WWQ5YFemSjikBJeeSUKvnpZebzSehO duZGVjXHBsYWluXHBsYWluXGYwXGZzMjRccWxccGxh tS2zUsBkXiHzEWsfVL3kYXHsE0zwqZJrHNBvTSWuM5 itQgRyiV4njPxtFHwknhTlVKFburZead7gMVMbhIEw fQ== [facility] [id number] 17:30:00Surgical Pathology Report Case: [id number] Authorizing Provider: Fred Pathak MD Collected: 01/19/2020 12:15 PM Ordering Location: [facility] ENDOSCOPY Received: 01/19/2020 02:21 PM SERVICES Pathologist: Dipika Bar MD Specimens: A) - Duodenum, BX R/O Celiac and iron deficiency B) -Cecum, BX C) - Large Intestine, Colon - Transverse, BX R/O Colitis D) - LargeIntestine, Colon - Left/Descending, BX R/O Colitis E) - Large Intestine, Colon - Rectosigmoid, BX R/O Colitis A. DUODENUM, BIOPSY: - NO SIGNIFICANT PATHOLOGICAL ABNORMALITY B. CECUM, BIOPSY: - MINIMAL ARCHITECTURE DISTORTION - MELANOSIS COLIC. TRANSVERSE COLON, BIOPSY: - CHRONIC COLITIS WITH SPARSE ACTIVITY - NO GRANULOMA OR DYSPLASIAD. LEFT DESCENDING COLON, BIOPSY: - CHRONIC COLITIS - NO ACTIVITY, GRANULOMA OR DYSPLASIAE. RECTOSIGMOID COLON, BIOPSY: - CHRONIC COLITIS - NO ACTIVITY, GRANULOMA OR DYSPLASIA Signing Pathologist Direct Phone Line: [phone] signed by Dipika Bar MD on 01/24/2020 at 5:30 [facility] /[id number] diagnosis: Inflammatory bowel diseaseProcedure: colonoscopy, biopsy, upper endoscopy, biopsy A. Duodenum biopsy, rule out celiac and iron deficiency; B. Cecum, biopsy'; C. Large intestine, colon - transverse, biopsy rule out colitis; D. Large intestine, colon - left/descending, biopsy rule out colitis; E. Large intestine, colon - rectosigmoid biopsy, rule out colitisA. Received in formalin labeled with the patient's name, accession number and "duodenum" are multiple michelle-white soft tissue fragments that measure in aggregate 1.2 x x 0.5 x 0.3 cm. The specimen is entirely submitted as A1. B. Received in formalin labeled with the patient's name, accession number and "cecum" are threetan-white soft tissue fragments that measure in aggregate 0.6 x 0.4 x 0.3 cm. The specimen is entirely submitted as B1. C. Received in formalin labeled with the patient's name, accession number and "transverse colon" are multiple michelle soft tissue fragments that measure in aggregate 0.7 x 0.4 x 0.3 cm. The specimen is entirely submitted as C1. D. Received in formalin labeled with the patient's name, accession number and "descending colon" are four michelle-white soft tissue fragments that measure in aggregate 0.6 x 0.4 x 0.3 cm. The specimen is entirely submitted as D1. E. Received in formalin labeled with the patient's name, accession number and " rectosigmoid colon" are multiple michelle-white soft tissue fragments that measure in aggregate 0.8 x 0.5 x 0.4 cm. The specimen is entirely submitted as E1. MH/plPerformedPOCT , [id number] 10:56:00 Test Item Value Reference Range Interpretation Comments Test Urine, POC (test Negative code = 2074366) Control line present?, POC (test Yes code = 4731116) Background clear?, POC (test code Yes = 3897484) UPT Cassette Lot #, POC (test code 5530007 = [id number]) UPT Cassette Expiration Date, POC 06/10/2021 (test code = 6296571) Lab Interpretation (test code = Normal 84596-6) [id number] 15:44:00Surgical Pathology Report Case: [id number] Authorizing Provider: Yi Orozco MD Collected: 02/14/2019 1117 Ordering Location: [facility] ENDOSCOPY Received: 02/14/2019 1616 SERVICES Pathologist: Jesica Singletary MD Specimens: A) - Cecum B) -Large Intestine, Colon - Right/Ascending C) - Large Intestine, Colon - Transverse D) - LargeIntestine, Colon - Left/Descending E) - Large Intestine, Colon - Sigmoid F) - Rectum A. CECUM, BIOPSY: - COLONIC MUCOSA WITH LYMPHOID AGGREGATE - FOCAL MELANOSIS COLIB. RIGHT ASCENDING COLON, BIOPSY: - COLONIC MUCOSA WITH FOCAL INCREASE IN CHRONIC INFLAMMATION IN THE LAMINA PROPRIA WITH MELANOSIS COLIC. TRANSVERSE COLON, BIOPSY: - COLONIC MUCOSA WITH FOCAL INCREASE IN CHRONIC INFLAMMATION IN THE LAMINA PROPRIA WITH PRESERVED ARCHITECTURE D. LEFT DESCENDING COLON, BIOPSY: - COLONIC MUCOSA WITH FOCAL PANETH CELL METAPLASIA, INCREASED CHRONIC INFLAMMATION IN THE LAMINA PROPRIA AND MINIMAL ARCHITECTURAL DISTORTION SUGGESTIVE OF MILD CHRONIC INACTIVE COLITISE. SIGMOID, BIOPSY: - COLONIC MUCOSA WITH FOCAL LYMPHOID AGGREGATE - NO SIGNIFICANT HISTOPATHOLOGICAL CHANGE F. RECTUM, BIOPSY: - RECTAL MUCOSA WITH SURFACE HYPERPLASTIC CHANGE AND DIFFUSE MUCIPHAGES IN THE LAMINAPROPRIA - CD68 IMMUNOSTAIN HIGHLIGHT THE MACROPHAGES - ALCIAN BLUE AND MUCICARMINE HIGHLIGHT THE MUCIN IN MACROPHAGES SJ/pl Signing Pathologist Direct Phone Line: [phone] signed by Jesica Singletary MD on 02/16/2019 at 3:44 PMA to F: Negative for dysplasia or viral cytopathic effect. Endoscopic report reviewed. [id number] x6; [id number] x2; [id number] x1A. Cecum; B. Right ascending; C. Colon transverse; D. Colon left descending; E. Colon sigmoid; F. rectumSpecimen is received in six partslabeled with the patient's name and MRN number corresponding to requisition slip with the same information. A. Received in formalin labeled "cecum" are three michelle-pink spherical pieces of tissue measuring 0.2, 0.2 and 0.3 cm in greatest dimension. The specimen is submitted entirely in a single cassetteA1 for microscopic examination. B. Received in formalin labeled "large intestine, colon - right/asecending" are three pink irregular pieces of tissue measuring 0.3 x 0.3 x 0.2 cm, 0.2 x 0.2 x 0.1 cm and 0.2 x 0.1 x 0.1 cm. The specimen is submitted entirely in a single cassette B1 for microscopic exami nation. C. Received in formalin labeled "large intestine, colon - transverse" are multiple irregular to spherical michelle pieces of tissue measuring 0.5 x 0.5 x 0.4 cm in aggregate. The specimen is submitted entirely in cassette C1 for microscopic examination. D. Received in formalin labeled "large intestine, colon - left/descending" are four michelle to pink irregular to spherical pieces of tissue measuring0.4 x 0.4 x 0.3 cm in aggregate. The specimen is submitted entirely in cassette D1 for microscopic examination. E. Received in formalin labeled "large intestine, colon, sigmoid" are multiple michelle to pink irregular to spherical pieces of tissue measuring 0.6 x 0.5 x 0.4 cm in aggregate. The specimen is s ubmitted entirely in cassette E1 for microscopic examination. F. Received in formalin labeled "rectum" are two michelle-pink irregular pieces of tissue measuring 0.3 x 0.3 x 0.2 cm each. The specimen is submitted entirely in a single cassette F1 for microscopic examination. MA/plPerformed The interpretation of this case included the use of immunohistochemistry or special stains.Control Slides Examined:In-house known positive controls were evaluated along with the test tissue. These control slides run alongside of the patients sample show appropriate staining. Internal positive and negative controlswhen available are evaluated Immunohistochemistry technical testing was performed at [facility]ology Laboratory where it was developed and its performance characteristics were determined. It has not been cleared or approved by the [place] Food and Drug Administration. The FDA has determined that such clearance or approval is not necessary. The test is used for clinical purposes. It should not be regarded as investigational or for research. This laboratory is certified under the Clinical Laboratory Improvement Amendments of 1988 (CLIA-88) as qualified to perform high complexity clinical laboratory testing.
[2020-06-19] MEDS ORDERED: LORazepam 2 MG/ML VIAL ONE (07:10)
[2020-06-19 07:35] LABS: Protime INR 1.02
[2020-06-19 07:47] LABS: Absolute Lymphocytes (CBC) 0.9 K/uL (0.7-4.9); Basophils % 0.4 % (0-1.3); Hematocrit 39.6 % (36.0-45.0); Lymphocytes % 16.3 % (15.3-44.8); MPV 8.6 fL (7.6-11.3); RBC Red Blood Cell Count 4.34 M/uL (3.86-4.86)
[2020-06-19 07:58] LABS: ALT/SGPT 20 U/L (12-78); AST/SGOT 18 U/L (15-37); Albumin 4.2 g/dL (3.4-5.0); Alkaline Phosphatase 86 U/L (45-117); BUN Blood Urea Nitrogen 5 mg/dL (7-18); Bicarbonate 25 mmol/L (21-32); Bilirubin Direct 0.1 mg/dL (0-0.2); Bilirubin Total 0.6 mg/dL (0.2-1.0); Glucose Level 101 mg/dL (74-106); Potassium 3.5 mmol/L (3.5-5.1); Protein, Total 8.2 g/dL (6.4-8.2); Sodium Level 139 mmol/L (136-145)
--- NOTE | 2020-06-19 08:32 | EDPHYS ---
Physician Documentation [facility] Name: Hallie Anderson Age: 50 yrs Sex: Female : 1970 Arrival Date: 06/19/2020 Time: 06:11 Bed 20 Private MD: ED Physician Corey Guillermo HPI: 06/19 06:35 This 50 yrs old Other Female presents to ER via Unassigned with complaints of CAN NOT yuliet SLEEP. 06:35 cant sleep. Onset: The symptoms/episode began/occurred 2 day(s) ago. Severity of yuliet symptoms: At their worst the symptoms were mild moderate in the emergency department the symptoms are unchanged. The patient has experienced similar episodes in the past, a few times. HORSE TRAINER: 07:15 LMP 06/10/2020 rr5 Historical: - Allergies: 06:46 steroids; rr5 - PMHx: 06:46 ulcerative colitis; rr5 - PSHx: 06:46 ; rr5 - Immunization history:: Adult Immunizations not up to date. - Social history:: Smoking status: unknown Patient/guardian denies using alcohol, street drugs, tobacco products. - Family history:: not pertinent. ROS: 06:35 Constitutional: Negative for fever, chills, and weight loss, Eyes: Negative for injury, yuliet pain, redness, and discharge, ENT: Negative for injury, pain, and discharge, Neck: Negative for injury, pain, and swelling, Cardiovascular: Negative for chest pain, palpitations, and edema, Respiratory: Negative for shortness of breath, cough, wheezing, and pleuritic chest pain, Abdomen/GI: Negative for abdominal pain, nausea, vomiting, diarrhea, and constipation, Back: Negative for injury and pain, : Negative for injury, bleeding, discharge, and swelling, MS/Extremity: Negative for injury and deformity, Skin: Negative for injury, rash, and discoloration, Neuro: Negative for headache, weakness, numbness, tingling, and seizure, Allergy/Immunology: Negative for hives, rash, and allergies, Endocrine: Negative for neck swelling, polydipsia, polyuria, polyphagia, and marked weight changes, Hematologic/Lymphatic: Negative for swollen nodes, abnormal bleeding, and unusual bruising. 06:35 Psych: Positive for insomnia. Exam: 06:35 Constitutional: This is a well developed, well nourished patient who is awake, alert, yuliet and in no acute distress. Head/Face: Normocephalic, atraumatic. Eyes: Pupils equal round and reactive to light, extra-ocular motions intact. Lids and lashes normal. Conjunctiva and sclera are non-icteric and not injected. Cornea within normal limits. Periorbital areas with no swelling, redness, or edema. ENT: Nares patent. No nasal discharge, no septal abnormalities noted. Tympanic membranes are normal and external auditory canals are clear. Oropharynx with no redness, swelling, or masses, exudates, or evidence of obstruction, uvula midline. Mucous membranes moist. Neck: Trachea midline, no thyromegaly or masses palpated, and no cervical lymphadenopathy. Supple, full range of motion without nuchal rigidity, or vertebral point tenderness. No Meningismus. Chest/axilla: Normal chest wall appearance and motion. Nontender with no deformity. No lesions are appreciated. Cardiovascular: Regular rate and rhythm with a normal S1 and S2. No gallops, murmurs, or rubs. Normal PMI, no JVD. No pulse deficits. Respiratory: Lungs have equal breath sounds bilaterally, clear to auscultation and percussion. No rales, rhonchi or wheezes noted. No increased work of breathing, no retractions or nasal flaring. Abdomen/GI: Soft, non-tender, with normal bowel sounds. No distension or tympany. No guarding or rebound. No evidence of tenderness throughout. Back: No spinal tenderness. No costovertebral tenderness. Full range of motion. Female : Normal external genitalia. Skin: Warm, dry with normal turgor. Normal color with no rashes, no lesions, and no evidence of cellulitis. MS/ Extremity: Pulses equal, no cyanosis. Neurovascular intact. Full, normal range of motion. Neuro: Awake and alert, GCS 15, oriented to person, place, time, and situation. Cranial nerves II-XII grossly intact. Motor strength 5/5 in all extremities. Sensory grossly intact. Cerebellar exam normal. Normal gait. 06:35 Psych: Behavior/mood is pleasant, cooperative, Affect is calm, Oriented to Patient has no thoughts/intents to harm self or others. Judgement / Insight is normal. Memory is normal. Delusions/hallucinations are not present. 07:12 ECG was reviewed by the Attending Physician. [facility] Vital Signs: 06:44 BP 136 / 86; Pulse 76; Resp 16; Temp 97.6; Pulse Ox 100% ; Weight 72.57 kg; Height 5 rr5 ft. 5 in. (165.10 cm); Pain 0/10; 08:24 BP 122 / 76; Pulse 58; Resp 18; Pulse Ox 99% on R/A; ph 06:44 Body Mass Index 26.63 (72.57 kg, 165.10 cm) rr5 NIH Stroke Scale Scores: 06:35 NIHSS Score: 0 yuliet MDM: 06:39 Differential Diagnosis altered mental status, sepsis. Data reviewed: vital signs, [facility] nurses notes, lab test result(s), EKG. Data interpreted: power bender operator: rate is 62 beats/min, rhythm is regular, Pulse oximetry: on room air is 96 %. Test interpretation: by ED physician or midlevel provider: ECG. Counseling: I had a detailed discussion with the patient and/or guardian regarding: the historical points, exam findings, and any diagnostic results supporting the discharge/admit diagnosis, lab results, radiology results, the need for outpatient follow up. 06:41 Patient medically screened. [facility] 06/19 06:27 Order name: Acetaminophen; Complete Time: 08:31 [facility] 06/19 06:27 Order name: Basic Metabolic Panel [facility] 06/19 06:27 Order name: CBC with Diff [facility] 06/19 06:27 Order name: ETOH Level [facility] 06/19 06:27 Order name: Hepatic Function [facility] 06/19 06:27 Order name: PT-INR [facility] 06/19 06:27 Order name: Ptt, Activated [facility] 06/19 06:27 Order name: Salicylate [facility] 06/19 06:27 Order name: Urine Drug Screen [facility] 06/19 07:08 Order name: Urine Dipstick--Ancillary (enter results) ds4 06/19 07:47 Order name: Salicylates Level; Complete Time: 07:55 EDMS 06/19 07:49 Order name: Alcohol Serum/Plasma; Complete Time: 07:55 EDMS 06/19 07:52 Order name: Protime (+INR); Complete Time: 07:55 EDMS 06/19 07:52 Order name: PTT, Activated Partial Thromb; Complete Time: 07:55 EDMS 06/19 06:27 Order name: EKG; Complete Time: 06:28 [facility] 06/19 06:27 Order name: EKG - Nurse/Tech; Complete Time: 07:07 [facility] 06/19 06:27 Order name: IV Saline Lock; Complete Time: 07:07 [facility] 06/19 06:27 Order name: Labs collected and sent; Complete Time: 07:07 [facility] 06/19 06:27 Order name: Urine Dipstick-Ancillary (obtain specimen); Complete Time: 07:09 [facility] 06/19 07:59 Order name: Basic Metabolic Panel; Complete Time: 08:31 EDNE 06/19 07:59 Order name: Liver (Hepatic) Function; Complete Time: 08:31 EDMS 06/19 08:11 Order name: CBC with Automated Diff; Complete Time: 08:31 EDMS EC:12 Rate is 75 beats/min. Rhythm is regular. QRS [place] is Normal. [place] interval is normal. QRS yul[place] interval is normal. QT interval is normal. No Q waves. T waves are Normal. No ST changes noted. Clinical impression: NSR w/ Non-specific ST/T Changes and No evidence of ischemia. Interpreted by me. Reviewed by me. Administered Medications: 07:05 Drug: Ativan 1 mg Route: IVP; Site: right antecubital; rr5 Disposition: 06/19/20 08:32 Discharged to Home. Impression: Insomnia, Insomnia, unspecified. - Condition is Stable. - Discharge Instructions: Insomnia. - Prescriptions for Restoril 15 mg Oral capsule - take 1 capsule by ORAL route once daily at bedtime as needed; 10 capsule. hydroxyzine HCl 25 mg Oral tablet - take 1 tablet by ORAL route Every night; 20 tablet. - Medication Reconciliation Form, Thank You Letter, Antibiotic Education, Prescription Opioid Use form. - Follow up: Private Physician; When: 2 - 3 days; Reason: Recheck today's complaints, Continuance of care, Re-evaluation by your physician. Follow up: William Travis; When: 5 - 6 days; Reason: Recheck today's complaints, Re-evaluation by your physician. - Problem is new. - Symptoms have improved. NIH Stroke Scale - NIH Stroke Score Date: 06/19/2020 Time: 06:35 Total Score = 0 1a. Level of Consciousness (LOC) - 0(Alert) 1b. Level of Consciousness (LOC) (Year \T\ Age) - 0(Both) 1c. LOC Commands (Open \T\ Closes Eyes/Program Arranger) - 0(Both) 2. Best Gaze (Lateral Gaze Paresis) - 0(Normal) 3. Visual Field Loss - 0(No visual loss) 4. Facial Palsy - 0(Normal) 5a. Left Arm: Motor (10-second hold) - 0(No drift) 5b. Right Arm: Motor (10-second hold) - 0(No drift) 6a. Left Leg: Motor (5-second hold - always test supine) - 0(No drift) 6b. Right Leg: Motor (5-second hold - always test supine) - 0(No drift) 7. Limb Ataxia (finger/nose \T\ heel/[place] - test with eyes open) - 0(Absent) 8. Sensory Loss (pinprick arms/legs/face) - 0(Normal) 9. Best Language: Aphasia (description/naming/reading) - 0(No aphasia) 10. Dysarthria (speech clarity - read or repeat words) - 0(Normal) 11. Extinction and Inattention (visual/tactile/auditory/spatial/personal) - 0(No abnormality) Initials: [facility] Signatures: Dispatcher [employer] EDMS Corey Guillermo MD MD cha Hall, Patricia, RN RN ph Hemant Bautista RN RN rr5 Corrections: (The following items were deleted from the chart) 09:20 08:32 06/19/2020 08:32 Discharged to Home. Impression: Insomnia; Insomnia, ph unspecified. Condition is Stable. Discharge Instructions: Insomnia. Prescriptions for Restoril 15 mg Oral capsule - take 1 capsule by ORAL route once daily at bedtime as needed; 10 capsule. and Forms are Medication Reconciliation Form, Thank You Letter, Antibiotic Education, Prescription Opioid Use. Follow up: Private Physician; When: 2 - 3 days; Reason: Recheck today's complaints, Continuance of care, Re-evaluation by your physician. Follow up: William Travis; When: 5 - 6 days; Reason: Recheck today's complaints, Re-evaluation by your physician. Problem is new. Symptoms have improved. yuliet
--- NOTE | 2020-06-19 08:32 | ER ---
Nurse's Notes [facility] Name: Hallie Anderson Age: 50 yrs Sex: Female : 1970 Arrival Date: 06/19/2020 Time: 06:11 Bed 20 Private MD: Diagnosis: Insomnia;Insomnia, unspecified Presentation: 06/19 06:44 Chief complaint: Patient states: I am stress, I cannot sleep for 2 nights now, I feel rr5 my body is tingling. Coronavirus screen: Client denies travel out of the [place] in the last 14 days. At this time, the client does not indicate any symptoms associated with coronavirus-19. Ebola Screen: Patient negative for fever greater than or equal to 101.5 degrees Fahrenheit, and additional compatible Ebola Virus Disease symptoms Patient denies exposure to infectious person. Patient denies travel to an Ebola-affected area in the 21 days before illness onset. Initial Sepsis Screen: Does the patient meet any 2 criteria? No. Patient's initial sepsis screen is negative. Does the patient have a suspected source of infection? No. Patient's initial sepsis screen is negative. Risk Assessment: Do you want to hurt yourself or someone else? Patient reports no desire to harm self or others. Onset of symptoms was June 19, 2020. 06:44 Method Of Arrival: Ambulatory rr5 06:44 Acuity: SRIDHAR 3 rr5 Triage Assessment: 06:47 General: Appears in no apparent distress. comfortable, Behavior is calm, cooperative, rr5 appropriate for age. Pain: Denies pain. Neuro: Level of Consciousness is awake, alert, obeys commands, Oriented to person, place, time, situation. Cardiovascular: Capillary refill < 3 seconds Patient's skin is warm and dry. Respiratory: Airway is patent Respiratory effort is even, unlabored, Respiratory pattern is regular, symmetrical. 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 - Social history:: Smoking status: unknown Patient/guardian denies using alcohol, street drugs, tobacco products. - Family history:: not pertinent. Screenin:47 Abuse screen: Denies threats or abuse. Denies injuries from another. Nutritional rr5 screening: No deficits noted. Fall Risk IV access (20 points). Total Adler Fall Scale indicates No Risk (0-24 pts). 06:47 Tuberculosis screening: No symptoms or risk factors identified. rr5 Assessment: 07:21 Reassessment: Patient appears in no apparent distress at this time. Patient and/or rr5 family updated on plan of care and expected duration. Pain level reassessed. Pt resting quietly w/ lights off in room. 08:24 Reassessment: Patient appears in no apparent distress at this time. No changes from ph previously documented assessment. Patient and/or family updated on plan of care and expected duration. Pain level reassessed. Vital Signs: 06:44 BP 136 / 86; Pulse 76; Resp 16; Temp 97.6; Pulse Ox 100% ; Weight 72.57 kg; Height 5 rr5 ft. 5 in. (165.10 cm); Pain 0/10; 08:24 BP 122 / 76; Pulse 58; Resp 18; Pulse Ox 99% on R/A; ph 06:44 Body Mass Index 26.63 (72.57 kg, 165.10 cm) rr5 NIH Stroke Scale Scores: 06:35 NIHSS Score: 0 [facility] ED Course: 06:11 Patient arrived in ED. ag3 06:26 Corey Guillermo MD is Attending Physician. yuliet 06:35 Hemant Bautista, SHANE is Primary Nurse. rr5 06:45 Triage completed. rr5 06:46 Arm band placed on right wrist. rr5 06:47 Patient has correct armband on for positive identification. Bed in low position. Call rr5 light in reach. monitor car operator on. Pulse ox on. NIBP on. 06:47 No provider procedures requiring assistance completed. Inserted saline lock: 20 gauge rr5 in right antecubital area, using aseptic technique. ,using aseptic technique. inserted by [facility] Blood collected. 08:32 William Travis MD is Referral Physician. [facility] Administered Medications: 07:05 Drug: Ativan 1 mg Route: IVP; Site: right antecubital; rr5 Outcome: 08:32 Discharge ordered by . [facility] 09:20 Patient left the ED. NIH Stroke Scale - NIH Stroke Score Date: 06/19/2020 Time: 06:35 Total Score = 0 1a. Level of Consciousness (LOC) - 0(Alert) 1b. Level of Consciousness (LOC) (Year \T\ Age) - 0(Both) 1c. LOC Commands (Open \T\ Closes Eyes/Meatman) - 0(Both) 2. Best Gaze (Lateral Gaze Paresis) - 0(Normal) 3. Visual Field Loss - 0(No visual loss) 4. Facial Palsy - 0(Normal) 5a. Left Arm: Motor (10-second hold) - 0(No drift) 5b. Right Arm: Motor (10-second hold) - 0(No drift) 6a. Left Leg: Motor (5-second hold - always test supine) - 0(No drift) 6b. Right Leg: Motor (5-second hold - always test supine) - 0(No drift) 7. Limb Ataxia (finger/nose \T\ heel/[place] - test with eyes open) - 0(Absent) 8. Sensory Loss (pinprick arms/legs/face) - 0(Normal) 9. Best Language: Aphasia (description/naming/reading) - 0(No aphasia) 10. Dysarthria (speech clarity - read or repeat words) - 0(Normal) 11. Extinction and Inattention (visual/tactile/auditory/spatial/personal) - 0(No abnormality) Initials: yuliet Signatures: Corey Guillermo MD MD cha Hall, Patricia, RN RN Marly Nowak 3 Hemant Bautista, RN RN rr5
[2020-06-19 15:18] LABS: Urine Blood TRACE (NEG); Urine Glucose NEGATIVE (NEG); Urine Protein NEGATIVE (NEG); Urine pH 6.5 (5.0-7.0)
--- NOTE | 2020-06-20 11:01 | EKG ---
Test Date: 2020-06-19 Test Time: 06:56:28 Heel Boom Operator: LILIA MEASUREMENT RESULTS: Intervals: Rate: 75 IA: 146 QRSD: 84 QT: 384 QTc: 428 [place]: P: -18 IA: 146 QRS: 37 T: 7 INTERPRETIVE STATEMENTS: Normal sinus rhythm Nonspecific ST and T wave abnormality Abnormal ECG Compared to ECG 10/12/2018 10:00:26 ST (T wave) deviation now present Sinus tachycardia no longer present Electronically Signed On 06-20-20 10:56:42 DRIVER STARTING GATE by Cameron Farrell
== END 2020-06-19 09:20 | disposition home or self-care (01) ==
LOC: ER 06:08
DX: G47.00 Insomnia, unspecified (principal); Z88.8 Allergy status to other drugs, medicaments and biological substances
CPT/HCPCS: 36415; 80048; 80076; 80320; 80329; 81003; 85025; 85610; 85730; 93005; 96374; 99284

== ENCOUNTER 2022-05-27 08:27 | Day surgery (SDC) | payer OTHER ==
[2022-05-27 08:33] LABS: Specific Gravity 1.021 (1.005-1.030)
[2022-05-27 08:35] LABS: Absolute Lymphocytes (CBC) 1.2 K/uL (0.7-4.9); Hematocrit 32.7 % (36.0-45.0); Lymphocytes % 24.4 % (15.3-44.8); MCV 80.9 fL (80-100); MPV 7.5 fL (7.6-11.3); RBC Red Blood Cell Count 4.04 M/uL (3.86-4.86)
[2022-05-27 08:42] LABS: Potassium 4.2 mmol/L (3.5-5.1)
--- NOTE | 2022-05-27 08:44 | RAD REPORT ---
EXAM DESCRIPTION: Edna Suarez (2 Views)05/27/2022 8:27 am CLINICAL HISTORY: Preop for back surgery. COMPARISON: 2018 FINDINGS: The lungs appear clear of acute infiltrate. The heart is normal size IMPRESSION: No acute abnormalities displayed
[2022-05-27] MEDS ORDERED: CEFAZOLIN SODIUM 1 GM/VIAL ONE (08:49)
[2022-05-27] MEDS ORDERED: Ringers Lactate 1,000 ML IV ONE (08:49)
[2022-05-27 09:07] VITALS: O2SAT 100
[2022-05-27] MEDS ORDERED: CIPROFLOXACIN 400mg IV 400 MG/200 ML BAG IV ONE (09:18)
[2022-05-27] MEDS ORDERED: FENTANYL CITR 100 MCG/2 ML ONE (09:33)
[2022-05-27] MEDS ORDERED: propofoL 200 MG/20 ML VIAL IV ONE (09:33)
[2022-05-27] MEDS ORDERED: ONDANSETRON 4 MG/2 ML VIAL ONE (09:33)
[2022-05-27] MEDS ORDERED: LIDOCAINE 2% MPF 5 ML VIAL ONE (09:33)
[2022-05-27] MEDS ORDERED: dexAMETHasone 10 MG/ML VIAL ONE (09:33)
[2022-05-27] MEDS ORDERED: MIDAZOLAM HCL 2 MG/2 ML INJ ONE (09:33)
[2022-05-27] MEDS ORDERED: KETOROLAC 30 MG/ML INJ ONE (10:36)
[2022-05-27] MEDS ORDERED: Mastisol Adhesive Liq ONE (11:00)
--- NOTE | 2022-05-27 11:37 | P.BOP ---
Preoperative diagnosis: infected back subq mass Postoperative diagnosis: same Primary procedure: Excisional biopsy of infected back subq mass 5x5cm Estimated blood loss: <10cc Specimen: mass, culture Findings: mass, Anesthesia: General Complications: None Transferred to: Recovery Room Condition: Good
[2022-05-27] MEDS ORDERED: HYDROCODONE/APAP 7.5/325 MG TAB ONE (12:54)
[2022-05-27 14:39] VITALS: BP 122/66; TEMP 97
--- NOTE | 2022-05-27 19:01 | EKG ---
Test Date: 2022-05-27 Test Time: 08:06:01 Director Check: BILLY MEASUREMENT RESULTS: Intervals: Rate: 56 [place]: 160 QRSD: 80 QT: 410 QTc: 395 [place]: P: OK: 160 QRS: 70 T: 20 INTERPRETIVE STATEMENTS: Sinus bradycardia Low voltage QRS Nonspecific T wave abnormality Abnormal ECG Compared to ECG 06/19/2020 06:56:28 Low QRS voltage now present T-wave abnormality now present Sinus rhythm no longer present ST (T wave) deviation no longer present Electronically Signed On 05-27-22 19:00:22 COLD MEAT CHEF by Cameron Farrell
--- NOTE | 2022-05-28 00:51 | OP ---
Date of Procedure: 05/27/2022 Surgeon: Alhaji Olvera MD Preoperative Diagnosis: Infected back, subcutaneous mass. Postoperative Diagnosis: Infected back, subcutaneous mass. Procedure: Excisional biopsy of infected back subcutaneous mass about 5 x 5 cm. Estimated Blood Loss: Less than 10 cc. Specimen: Mass and culture. Findings: The patient had this infected mass. There is purulent discharge coming from the mass itse lf. She has been on antibiotics for more than a week. She preferred to remove the mass and at the s emil time, if possible to close that. She understands the risks of abscess and having to remove the s titches, but in order for her to put her in the best case scenario we started her antibiotics and she was scheduled to have it done under anesthesia where I can provide her with a little bit of better c hances of closing this wound. She understood the benefits, alternatives, and risks of excisional bio psy of this mass, which include, but are not limited to infection, bleeding, damage to adjacent struc tures, anesthesia complication, nonhealing wound, MO, and even . She also understands this may require wound care. She understood and signed a consent. Procedure In Detail: The area of concern was marked by me and the patient in the holding room. Heather ent was brought to the operating room and placed in supine position. Anesthesia was given without co mplication. The patient was placed in lateral decubitus position with proper protection. The back a kecia was prepped and draped in sterile fashion. There was an asymmetrical mass, it goes into an oval shape and apparently has a multiloculated aspect. So we marked the area and proceeded to remove the skin on top of that one since it is erythematosus and it looks like it is attached to it. This mass goes deep into the subcutaneous tissue, at least 1.5-2 cm. It has some fluctuance. We encountered s ome secretion coming from that area and we cultured those. Mass was completely excised in 1 unit and we were able to irrigate the area profusely, obtain hemostasis, put local anesthetic and then since she really wants this closed so after we profusely irrigated the area and we see no loculations prese nt and no purulent discharge, I proceeded to close this in layers; deep layers with 3-0 chromic, mid layers with 0 chromic and 3-0 chromic, subcuticular with a combination of 0 chromic, and Steri-Strips on top. Once again, hemostasis was obtained before closure. Steri-Strips placed over the area. Th e patient sent to recovery in stable condition. Sponge count and instrument counts correct. OLIVIER/KAYLIN Voice ID: [id number] Report ID: [id number]
--- NOTE | 2022-05-28 00:56 | DS ---
Diagnosis: Infected back subcutaneous mass. Procedure: Excisional biopsy of infected back subcutaneous mass. Disposition: Home. Activity: As tolerated. No lifting. Follow Up: In my office this Wednesday. Call for appointment. ELEANOR Voice ID: [id number] Report ID: [id number]
== END 2022-05-27 13:50 | disposition home or self-care (01) ==
LOC: OR 08:27
PROVIDERS: ATTEND Surgery
PROC: 0JB70ZZ Excision of Back Subcutaneous Tissue and Fascia, Open Approach (ICD-10-PCS; principal; 2022-05-27 10:15)
DX: L72.0 Epidermal cyst (principal)
CPT/HCPCS: 93005; 87070; 85025; 80048; 36415; 87205 ×2; 81025; 88304; 87075; 71046; 11406; J2704; J2001; J2250; J3010; J7120; J2405; J0744; 88305; J0690; J1100

== ENCOUNTER 2024-06-25 14:27 | Emergency (ER) | payer BC ==
[2024-06-25 15:08] LABS: SARS-CoV-2 Antigen CONTROL BLUE LINE VIS/BG OK; SARS-CoV-2 Antigen Rapid Res Negative (Negative)
--- NOTE | 2024-06-25 15:49 | ER ---
Nurse's Notes [facility] Name: Hallie Anderson Age: 54 yrs Sex: Female : 1970 Arrival Date: 06/25/2024 Time: 14:27 Bed DX3 Private MD: Diagnosis: Other viral pneumonia Presentation: 06/25 14:39 Chief complaint: Patient states: SORE THROAT, BODY ACHES, CHILLS, COUGH, DIARRHEA ONSET cm10 LAST NIGHT. Coronavirus screen: Client denies travel out of the [place] in the last 14 days. Ebola Screen: Patient denies travel to an Ebola-affected area in the 21 days before illness onset. No symptoms or risks identified at this time. Initial Sepsis Screen: Does the patient meet any 2 criteria? No. Patient's initial sepsis screen is negative. Does the patient have a suspected source of infection? No. Patient's initial sepsis screen is negative. Risk Assessment: Do you want to hurt yourself or someone else? Patient reports no desire to harm self or others. Onset of symptoms was June 25, 2024. 14:39 Method Of Arrival: Ambulatory cm10 14:39 Acuity: SRIDHAR 4 cm10 Triage Assessment: 14:45 General: Appears in no apparent distress. uncomfortable, Behavior is calm, cooperative. cm10 Pain: Complains of pain in generalized body aches. Neuro: No deficits noted. Level of Consciousness is awake, alert, obeys commands, Oriented to person, place, time, situation, Appropriate for age. Respiratory: No deficits noted. Reports cough that is Airway is patent Respiratory effort is even, unlabored, Respiratory pattern is regular, symmetrical. REALTIME REPORTER: 16:00 unknown cm10 Historical: - Allergies: 14:41 steroids; cm10 - PMHx: 14:41 ulcerative colitis; cm10 - Immunization history:: Adult Immunizations up to date. - Infectious Disease History:: Denies. - Social history:: Smoking status: Patient denies any tobacco usage or history of. Screenin:59 [facility] ED Fall Risk Assessment (Adult) History of falling in the last 3 months, cm10 including since admission No falls in past 3 months (0 pts) Confusion or Disorientation No (0 pts) Intoxicated or Sedated No (0 pts) Impaired Gait No (0 pts) Mobility Assist Device Used No (0 pt) Altered Elimination No (0 pt) Score/Fall Risk Level 0 - 2 = Low Risk Oriented to surroundings, Maintained a safe environment, Hourly rounding (assess needs \T\ fall precautionary measures) done. Abuse screen: Denies threats or abuse. Denies injuries from another. Nutritional screening: No deficits noted. Tuberculosis screening: No symptoms or risk factors identified. Vital Signs: 14:39 BP 123 / 79; Pulse 72; Resp 15; Temp 98.9(O); Pulse Ox 96% on R/A; Weight 77.11 kg; cm10 Height 5 ft. 5 in. ; Pain 7/10; 14:39 Body Mass Index 28.29 (77.11 kg, 165.1 cm) cm10 14:39 Pain Scale: Adult cm10 ED Course: 14:30 Patient arrived in ED. im 14:41 Triage completed. cm10 14:41 Arm band placed on right wrist. Patient placed in waiting room. Labs ordered per cm10 protocol. Drawn by ED staff. 14:41 COVID swab sent to lab. Flu and/or RSV swab sent to lab. Strep swab sent to lab. cm10 14:43 Strep Sent. cm10 14:43 SARS RAPID Sent. cm10 14:43 Flu Sent. cm10 15:34 Ted Hanson FNP-C is [facility]. dr5 15:34 Babak Baker MD is Attending Physician. dr5 15:59 Patient has correct armband on for positive identification. Provided Education on: cm10 Follow-up instructions.. Cardiac monitoring not applicable on this patient. 16:00 No provider procedures requiring assistance completed. Patient did not have IV access cm10 during this emergency room visit. Administered Medications: No medications were administered Medication: 15:59 VIS not applicable for this client. cm10 Outcome: 15:48 Discharge ordered by . dr5 15:59 Discharged to home ambulatory, with family, cm10 15:59 Condition: good 15:59 Discharge instructions given to patient, Instructed on discharge instructions, follow up and referral plans. medication usage, Demonstrated understanding of instructions, follow-up care, medications, Prescriptions given X 3, 16:00 Patient left the ED. cm10 Signatures: Shanice Hernandez Clarissa, RN RN cm10 Ted Hanson FNP-C ASSISTED LIVING HOUSEKEEPER-Cdr5
[2024-06-25 16:15] VITALS: BP 123/79; TEMP 98.9; O2SAT 96
--- NOTE | 2024-06-26 16:00 | EDPHYS ---
Physician Documentation [facility] [place] Name: Hallie Anderson Age: 54 yrs Sex: Female : 1970 Arrival Date: 06/25/2024 Time: 14:27 Bed DX3 Private MD: ED Physician Babak Baker HPI: 06/25 18:00 This 54 yrs old [place] Female presents to ER via Ambulatory with complaints of Flu dr5 Symptoms. 18:00 Patient is a 54-year-old female with history of ulcerative colitis coming in with dr5 cough, congestion, fever that has been going on for 1 day.. 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 - Infectious Disease History:: Denies. - Social history:: Smoking status: Patient denies any tobacco usage or history of. ROS: 18:00 Constitutional: as per hpi dr5 Exam: 18:00 Constitutional: This is a well developed, well nourished patient who is awake, alert, dr5 and in no acute distress. Head/Face: Normocephalic, atraumatic. Eyes: Pupils equal round and reactive to light, extra-ocular motions intact. Lids and lashes normal. Conjunctiva and sclera are non-icteric and not injected. Cornea within normal limits. Periorbital areas with no swelling, redness, or edema. Neck: Trachea midline, no thyromegaly or masses palpated, and no cervical lymphadenopathy. Supple, full range of motion without nuchal rigidity, or vertebral point tenderness. No Meningismus. Chest/axilla: Normal chest wall appearance and motion. Nontender with no deformity. No lesions are appreciated. Cardiovascular: Regular rate and rhythm with a normal S1 and S2. Normal PMI, no JVD. No pulse deficits. Abdomen/GI: Soft, non-tender, non-distended Back: No spinal tenderness. No costovertebral tenderness. Full range of motion. Skin: Warm, dry with normal turgor. Normal color with no rashes, no lesions, and no evidence of cellulitis. Neuro: Awake and alert, GCS 15, oriented to person, place, time, and situation. Cranial nerves II-XII grossly intact. Motor strength 5/5 in all extremities. Sensory grossly intact. Cerebellar exam normal. Normal gait. 18:00 Respiratory: the patient does not display signs of respiratory distress, Respirations: dr5 normal, no acute changes, Breath sounds: rhonchi, that are mild, are heard in the right posterior middle lobe, Vital Signs: 14:39 BP 123 / 79; Pulse 72; Resp 15; Temp 98.9(O); Pulse Ox 96% on R/A; Weight 77.11 kg; cm10 Height 5 ft. 5 in. ; Pain 7/10; 14:39 Body Mass Index 28.29 (77.11 kg, 165.1 cm) cm10 14:39 Pain Scale: Adult cm10 MDM: 15:43 Medical Screening Exam initiated dr5 18:00 Differential diagnosis: viral Infection, bacterial infection, URI. Data reviewed: vital dr5 signs, nurses notes, lab test result(s), Flu: negative. Care significantly affected by the following Social Determinants of Health: Poor access to healthcare and/or lack of insurance, Poor access to transportation, Problems related to employment. Counseling: I had a detailed discussion with the patient and/or guardian regarding the historical points, exam findings, and any diagnostic results supporting the discharge/admit diagnosis, the presence of at least one elevated blood pressure reading (>120/80) during this emergency department visit, the need for outpatient follow up, for definitive care, a family practitioner. 18:00 ED course: Will cover for community-acquired pneumonia with azithromycin and dr5 amoxicillin and patient given cough medication. Recommended increasing hydration and alternating Tylenol Motrin as needed for pain and fever. Follow-up with PCP as needed. All questions answered.. 06/25 14:39 Order name: Flu; Complete Time: 15:43 cm10 06/25 14:39 Order name: SARS RAPID; Complete Time: 15:43 cm10 06/25 14:39 Order name: Strep cm10 06/25 15:13 Order name: Throat Culture EDMS Administered Medications: No medications were administered Disposition Summary: 06/25/24 15:48 Discharge Ordered Notes: Location: Home dr5 Condition: Stable dr5 Diagnosis - Other viral pneumonia dr5 Followup: dr5 - With: Emergency Department - When: As needed - Reason: Worsening of condition Followup: dr5 - With: Private Physician - When: 1 - 2 days - Reason: Recheck today's complaints, Continuance of care, Re-evaluation by your physician Discharge Instructions: - Discharge Summary Sheet dr5 - Community-Acquired Pneumonia, Adult dr5 Forms: - Work release form cm10 - Medication Reconciliation Form dr5 - Antibiotic Education dr5 - Patient Portal Instructions dr5 - Leadership Thank You Letter dr5 Prescriptions: - Bromfed DM 2-30-10 mg/5 mL Oral syrup - administer 10 milliliter ORAL route every 6 hours as needed for allergy dr5 symptoms; 240 milliliter; Refills: 0, Product Selection Permitted - azithromycin 250 mg Oral tablet - take 1 dose pack ORAL route as directed on dose pack For 250 mg dose pack: take dr5 500 mg today (day 1), then 250 mg for 4 days (days 2-5); 1 Pack; Refills: 0, Product Selection Permitted - Amoxicillin 875 mg Oral Tablet - take 1 tablet ORAL route every 12 hours for 10 days; 20 tablet; Refills: 0, dr5 Product Selection Permitted Signatures: Dispatcher [employer] EDFL Chelita Olvera RN RN cm10 Ted Hanson FNP-[facility] [employer]ER-Cdr5 Corrections: (The following items were deleted from the chart) 14:40 14:40 Influenza Screen (A \T\ B)+BA.LAB.BRZ ordered. EDMS EDMS 14:40 14:40 SARS-COV-2 Antigen Rapid+I.LAB.BRZ ordered. EDFL EDMS 14:40 14:40 Group A Streptococcus Rapid Sc+BA.LAB.BRZ ordered. EDFL EDMS 18:01 18:00 Constitutional: This is a well developed, well nourished patient who is awake, dr5 alert, and in no acute distress. Head/Face: Normocephalic, atraumatic. Eyes: Pupils equal round and reactive to light, extra-ocular motions intact. Lids and lashes normal. Conjunctiva and sclera are non-icteric and not injected. Cornea within normal limits. Periorbital areas with no swelling, redness, or edema. Neck: Trachea midline, no thyromegaly or masses palpated, and no cervical lymphadenopathy. Supple, full range of motion without nuchal rigidity, or vertebral point tenderness. No Meningismus. Chest/axilla: Normal chest wall appearance and motion. Nontender with no deformity. No lesions are appreciated. Cardiovascular: Regular rate and rhythm with a normal S1 and S2. Normal PMI, no JVD. No pulse deficits. Abdomen/GI: Soft, non-tender, non-distended Back: No spinal tenderness. No costovertebral tenderness. Full range of motion. Skin: Warm, dry with normal turgor. Normal color with no rashes, no lesions, and no evidence of cellulitis. Neuro: Awake and alert, GCS 15, oriented to person, place, time, and situation. Cranial nerves II-XII grossly intact. Motor strength 5/5 in all extremities. Sensory grossly intact. Cerebellar exam normal. Normal gait. dr5
== END 2024-06-25 16:00 | disposition home or self-care (01) ==
LOC: ER 14:27
DX: J12.89 Other viral pneumonia (principal); Z11.52 Encounter for screening for COVID-19
CPT/HCPCS: 36415; 87070; 87081; 87804; 87811; 99283